=== PATIENT | male | born 1995 | race Hispanic/Latino ===

== ENCOUNTER 2024-05-19 02:49 | Emergency (ER) | payer SELFPAY ==
[~2024-05-19] VITALS: Ht 170.2 cm; Wt 104.3 kg
[2024-05-19 02:56] VITALS: TEMP 98.6
[2024-05-19 03:59] VITALS: PULSE 70; RESP 16; O2SAT 100
== END 2024-05-19 04:00 | disposition home or self-care (01) ==
LOC: ER 02:56
DX: J30.2 Other seasonal allergic rhinitis (principal); R06.02 Shortness of breath
CPT/HCPCS: 0223U; 36415; 71045; 93005; 99284